=== PATIENT | female | born 1990 | race Two or more races ===

== ENCOUNTER 2017-12-13 01:46 | Emergency (ER) | END 2017-12-13 06:09 | disposition home or self-care (01) ==

== ENCOUNTER 2017-12-17 10:09 | Emergency (ER) | END 2017-12-17 10:18 | disposition home or self-care (01) ==

== ENCOUNTER 2018-04-26 14:17 | Emergency (ER) | END 2018-04-26 15:46 | disposition left against medical advice (07) ==

== ENCOUNTER 2018-04-26 21:57 | Emergency (ER) | END 2018-04-27 02:07 | disposition home or self-care (01) ==